=== PATIENT | male | born 1995 | race Caucasian/White ===

== ENCOUNTER → 2019-05-01 | Outpatient (CLI) | payer OTHER ==
--- NOTE | 2019-05-01 10:26 | RAD ---
AP and lateral views, lumbar spine 05/01/2019 INDICATION: Low back pain. COMPARISON STUDY: None FINDINGS: No evidence of acute fracture or alignment abnormality is identified. Vertebral body heights and disc spaces are grossly preserved. No evidence of spondylolysis or spondylolisthesis is seen. No acute soft tissue changes are seen. IMPRESSION: No radiographic evidence of acute osseous abnormality Electronically signed by: Kamaljit Hassan MD (05/01/2019 10:23 AM) [id number]
== END | disposition home or self-care (01) ==
LOC: RAD 09:05
PROVIDERS: ATTEND Surgery
DX: M54.5 Low back pain (principal)
CPT/HCPCS: 72100